=== PATIENT | female | born 1975 | race African-American/Black ===

== ENCOUNTER 2016-08-12 00:26 | Emergency (ER) | payer BC ==
[2014-11-04 08:03] VITALS: BMI 39.7
[~2016-08-12 00:26] MED LIST: ALLEGRA-D1 TAB.SR1 PO; COUMADIN5 MG PO; HYDROCODONE-APA1 TAB PO; LOVENOX INJ100 MG/ML SC
[2016-08-12 01:08] LABS: BASOPHILS 0.3 % (0-2); EOSINOPHILS 1.3 % (0-7); HEMATOCRIT 36.5 % (36.0-48.0); HEMOGLOBIN 11.7 g/dL (12-16); IMMATURE GRANULOCYTES 0.1 % (0-5); LYMPHOCYTES 28.1 % (15-50); MCH 27.8 pg (26.0-34.0); MCHC 32.1 g/dL (31.0-37.0); MCV 86.7 fL (80.0-100.0); MONOCYTES 4.5 % (2-11); NEUTROPHILS 65.7 % (40-80); PLATELET COUNT 276 10x3/uL (130-400); RBC 4.21 10x6/uL (4.00-5.40); RDW 14.8 % (11.5-14.5); WBC 6.8 10x3/uL (4.8-10.8)
[2016-08-12 01:17] LABS: INR 1.7 (0.85-1.17)
[2016-08-12 03:19] LABS: ALBUMIN 3.4 g/dL (3.4-5.0); ANION GAP 10.5 mmol/L (8-16); BILIRUBIN - TOTAL 0.23 mg/dL (0.2-1.3); CALCIUM 9.3 mg/dL (8.5-10.1); CARBON DIOXIDE 28.5 mmol/L (21.0-32.0); CREATININE - SERUM 0.9 mg/dL (0.6-1.3); PROTEIN - SERUM 7.8 g/dL (6.4-8.2)
== END 2016-08-12 02:57 | disposition home or self-care (01) ==
LOC: D.ER 00:26
PROVIDERS: Family Medicine
DX: K64.4 Residual hemorrhoidal skin tags (principal)

== ENCOUNTER → 2017-07-25 17:27 | Outpatient (CLI) | payer BC ==
[2014-11-04 08:03] VITALS: BMI 39.7
== END | disposition home or self-care (01) ==
LOC: D.MAMMO 15:00
DX: Z12.31 Encounter for screening mammogram for malignant neoplasm of breast (principal)

== ENCOUNTER → 2017-09-11 21:23 | Outpatient (CLI) | payer BC ==
[2014-11-04 08:03] VITALS: BMI 39.7
== END | disposition home or self-care (01) ==
LOC: D.MAMMO 08-21 10:30
DX: R92.8 Other abnormal and inconclusive findings on diagnostic imaging of breast (principal)

== ENCOUNTER → 2017-09-20 12:10 | Outpatient (CLI) | payer BC ==
[2014-11-04 08:03] VITALS: BMI 39.7
[2017-09-20 13:09] LABS: EOSINOPHILS 4.1 % (0-7); HEMATOCRIT 36.9 % (36.0-48.0); LYMPHOCYTES 40.4 % (15-50); MCH 28.8 pg (26.0-34.0); MCHC 32.5 g/dL (31.0-37.0); MCV 88.5 fL (80.0-100.0); MEAN PLATELET VOLUME 10.2 fL (7.4-10.4); MONOCYTES 5.2 % (2-11); NEUTROPHILS 49.3 % (40-80); PLATELET COUNT 274 10x3/uL (130-400); RBC 4.17 10x6/uL (4.00-5.40); RDW 12.9 % (11.5-14.5); WBC 6.2 10x3/uL (4.8-10.8)
[2017-09-20 13:17] LABS: INR 1.5 (0.85-1.17); PROTIME 17.6 SECONDS (11.6-15.0)
== END | disposition home or self-care (01) ==
LOC: D.LABREF 12:10
PROVIDERS: Orthopaedic Surgery
DX: Z00.00 Encounter for general adult medical examination without abnormal findings (principal)

== ENCOUNTER 2019-11-09 05:08 | Day surgery (SDC) | payer MEDICARE, BC ==
[~2019-11-09] VITALS: Ht 182.9 cm; Wt 127.0 kg
[~2019-11-09 05:08] MED LIST changes: -COUMADIN5 MG PO; +JANTOVEN10 MG; +NAPROSYN500 MG PO; +WARFARIN SODIU7.5 MG PO; +WARFARIN SODIUM6 MG PO; +ZYRTEC10 MG PO
[2019-11-09 05:27] LABS: HEMATOCRIT 38.5 % (36.0-48.0); HEMOGLOBIN 12.4 g/dL (12-16); MCH 28.1 pg (26.0-34.0); MCHC 32.2 g/dL (31.0-37.0); MCV 87.3 fL (80.0-100.0); MEAN PLATELET VOLUME 10.2 fL (7.4-10.4); RBC 4.41 10x6/uL (4.00-5.40); RDW 12.9 % (11.5-14.5); WBC 6.4 10x3/uL (4.8-10.8)
[2019-11-09 05:48] LABS: APTT 49.5 SECONDS (22.8-39.4); INR 2.93 (0.85-1.17); PROTIME 30.1 SECONDS (11.6-15.0)
[2019-11-09] MEDS ORDERED: ATIVAN0.5 MG PO (06:13)
[2019-11-09 06:15] VITALS: Ht 182.9 cm; Wt 127.0 kg
[2019-11-09] MEDS ORDERED: HYDROCODON-ACE1 EAC7 PO (06:44)
--- NOTE | 2019-11-09 07:47 | NUR ---
DC INSTRUCTIONS GIVEN TO PT. STATES UNDERSTANDING. DC'D IV CATH FULLY INTACT. WAITING UNTIL [address] BENNETT'S OFFICE TO GET F/U APPT. SCHEDULED. WILL DC AFTERWARDS.
--- NOTE | 2019-11-10 08:22 | OP ---
PATIENT NAME: HASMUKH MATIAS MEDICAL RECORD: [id number] :79 LOCATION:D.OPS ADMISSION DATE: SURGEON: REUBEN BENNETT DO DATE OF OPERATION: 11/09/2019 PROCEDURE PERFORMED: Index finger mass excision. PREOPERATIVE DIAGNOSIS: Mass of the right index finger. POSTOPERATIVE DIAGNOSIS: Mass of the right index finger. INDICATIONS: Ms. Matias is a 44-year-old female who has had a mass on her right index finger at the 2-3 webspace for quite some time, months even, it started getting larger and she wanted it removed. 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 SURGEON: Reuben Bennett DO DESCRIPTION OF PROCEDURE: The patient was anesthetized locally by myself in the preoperative area where 5 mL of 0.25% Marcaine with epinephrine right around the mass side in a circumferential type method. She was then taken to the operative suite, laid in supine position, given 2 grams of Ancef. The right upper extremity was then prepped and draped in sterile fashion. Timeout was performed, everyone was in agreeance with the correct site, side, patient and procedure. We then exsanguinated the right upper extremity with ChloraPrep. She did not receive any anesthesia other than local. I then marked out over the mass and the tourniquet had been inflated to 250 mmHg after exsanguinating the right upper extremity with an Esmarch after being prepped and draped. The incision was made and the mass was excised. Any bleeding was coagulated with a bipolar. The tourniquet was then let down and again any bleeding was double checked with the bipolar and coagulated. Site was then irrigated and closed by Corona Feliz, certified nurses aide student under my direct supervision with 4-0 nylon in a horizontal mattress fashion. She was then dressed with Adaptic, 4 x 4s, Kerlix and Coban. She was awakened and taken back to the preoperative room in stable condition. The tourniquet was let down at 9 minutes. BLOOD LOSS: Minimal. COMPLICATIONS: None. TRANSINT:[id number] Voice Confirmation ID: [id number] DOCUMENT ID: [id number] REUBEN BENNETT DO at 0822 CC: [id number] DICTATION DATE: 11/09/19727 RECOVERY RN: 11/09/[address] [facility] 11/09/19 [facility] [address] [place] [address]
== END 2019-11-09 08:07 | disposition home or self-care (01) ==
LOC: D.OPS 05:08 → D.PAN 07:00 → D.OPS 08:07
PROVIDERS: Anesthesiology; ATTEND Orthopaedic Surgery
DX: R22.31 Localized swelling, mass and lump, right upper limb (principal); M79.644 Pain in right finger(s)

== ENCOUNTER 2020-07-13 13:30 | Outpatient (CLI) | payer MEDICARE, BC ==
[2019-11-09 06:15] VITALS: BMI 38.0
[~2020-07-13 13:30] MED LIST changes: +ATIVAN0.5 MG PO; +HYDROCODON-ACE1 EAC7 PO
== END 2020-07-13 14:00 | disposition home or self-care (01) ==
LOC: D.MAMMO 13:30
PROVIDERS: ATTEND Family Medicine
DX: N64.59 Other signs and symptoms in breast (principal)

== ENCOUNTER → 2020-07-27 12:25 | Outpatient (CLI) | payer BC ==
[2019-11-09 06:15] VITALS: BMI 38.0
== END | disposition home or self-care (01) ==
LOC: D.US 07-25 11:30
PROVIDERS: ATTEND Internal Medicine
DX: R92.8 Other abnormal and inconclusive findings on diagnostic imaging of breast (principal)